=== PATIENT | female | born 1960 | race Asian ===

== ENCOUNTER 2017-05-31 07:59 | Emergency (ER) | payer OTHER ==
[~2017-05-31] VITALS: Ht 160 cm; Wt 78.0 kg
[~2017-05-31 07:59] MED LIST: IBUP-1542 PO; MULT-703 PO
[2017-05-31 08:01] VITALS: Ht 160 cm; Wt 78.0 kg
[2017-05-31] MEDS ORDERED: CETI10CA PO (08:28)
[2017-05-31] MEDS ORDERED: IBUP-1542 PO (08:28)
[2017-05-31] MEDS ORDERED: BENZ100C70 PO (08:29)
--- NOTE | 2017-05-31 08:34 | ERD ---
ER Documentation Chief Complaint Date/Time DATE: 05/31/17 TIME: 08:[address] X 3 DAYS HPI She is a 57-year-old female presents to the emergency department for concerns of throat pain 3 days. Patient does report pain with swallowing. Patient denies any drooling, trismus or hyperextension of her neck. Patient reports tactile fevers. Patient denies taking any medication for symptoms. Patient denies any nausea, vomiting, abdominal pain, diarrhea, ear pain or neck stiffness. Patient does have a dry cough. Patient denies any chest pain, shortness of breath, left upper extremity pain, nausea. Patient denies any recent travel. No sick contacts ROS All systems reviewed and are negative except as per history of present illness. Medications Home Meds Active Scripts Benzonatate* (Tessalon Perle*) 100 Mg Capsule, 100 MG PO Q8H Y for COUGH, #20 CAP Prov:ATUL HALLMAN PA-C 05/31/17 Cetirizine Hcl* (Zyrtec*) 10 Mg Capsule, 10 MG PO DAILY, #20 TAB.CHEW Prov:ATUL HALLMAN PA-C 05/31/17 Ibuprofen* (Motrin*) 600 Mg Tab, 600 MG PO Q6, #20 TAB Prov:ATUL HALLMAN PA-C 05/31/17 Reported Medications Ibuprofen* (Ibuprofen*) 600 Mg Tablet, 500 MG PO DAILY Y 09/27/12 Multivitamins (Multivitamins) 1 Tab.chew Tab.chew, 1 TAB.CHEW PO DAILY 09/27/12 Allergies Allergies: Coded Allergies: No Known Drug Allergies (Verified Allergy, Unknown, 09/27/12) PMhx/Soc History of Surgery: Yes (C/S X1) Anesthesia Reaction: No Hx Neurological Disorder: Yes (DIZZINESS) Hx Respiratory Disorders: No Hx Cardiac Disorders: Yes (PALPITATIONS) Hx Psychiatric Problems: No Hx Miscellaneous Medical Probl: Yes (FATTY LIVER, INSOMIA) Hx Alcohol Use: Yes (occassional) Hx Substance Use: No Hx Tobacco Use: No Smoking Status: Never smoker Physical Exam Vitals Vital Signs Date Time Temp Pulse Resp B/P Pulse Ox O2 Delivery O2 Flow Rate FiO2 05/31/17 08:01 98.3 77 18 135/68 98 Physical Exam GENERAL: Well-developed, well-nourished female. Appears in no acute distress. Speaking in full sentences. No abdominal retractions or nasal flaring, no tripoding. HEAD: Normocephalic, atraumatic. No deformities or ecchymosis. EYE: Pupils equal, round, and reactive to light. EOMs intact. No conjunctival erythema. No eye discharge. ENT: External ear without any masses or tenderness. Auditory canals clear bilaterally. TM visualized bilaterally, non-erythematous, non-bulging. Nasal mucosa pink with no discharge. Oropharynx is erythematous without any unilateral tonsillar swelling or exudates noted. No uvula deviation. No kissing tonsils. No drooling. No hyperextension of the neck. No trismus. NECK: Supple. No meningismus. Normal ROM of the neck. LUNGS: Clear to auscultation bilaterally. No rhonchi, wheezing, rales or coarse breath sounds. HEART: Regular rate and rhythm. No murmurs, rubs or gallops. BACK: No midline tenderness. EXTREMITIES: Equal pulses bilaterally. No peripheral clubbing, cyanosis or edema. No unilateral leg swelling. NEUROLOGIC: Alert and oriented to person, place and time. Moving all four extremities. 5/5 strength in all extremities. Normal speech. Steady gait. SKIN: Normal color. Warm and dry. No rashes or lesions. Procedures/MDM MEDICAL DECISION MAKING: This is a 57-year-old female presents to the ED with concerns of throat pain and a dry cough 3 days. Vital signs were reviewed. Patient was afebrile. Patient was not hypoxic. The patient does not have trismus, muffled voice, uvula deviation, unilateral tonsillar swelling, or drooling. No signs of neck swelling or hyperextension of the neck noted. Lung exam was unremarkable. Given these findings, the patient's presentation is most consistent with viral pharyngitis. I have a much lower clinical suspicion for epiglottitis, peritonsillar abscess, retropharyngeal abscess, Ludwigs angina, strep pharyngitis, dental abscess, meningitis, acute otitis media, otitis externa. PRESCRIPTIONS: Zyrtec, ibuprofen, Tessalon Perles DISCHARGE: At this time, patient is stable for discharge and outpatient management. Supportive therapies such as OTC throat lozenges and warm salt water gurgles were discussed. I have instructed the patient to follow-up with his/her primary care physician in 1-2 days. I have discussed with the patient the possibility of needing to see a specialist for further workup and imaging studies if symptoms persist. I have instructed the patient to promptly return to the ER for any new or worsening symptoms including increased pain, fever, nausea, vomiting, weakness or LOC. The patient and/or family expressed understanding of and agreement with this plan. All questions were answered. Home care instructions were provided. Patients blood pressure was elevated (>120/80) but appears stable without evidence of hypertensive emergency, hypertensive urgency or end-organ failure. I had discussion with the patient about the risks of hypertension. I have advised the patient to follow up with his/her primary care physician for outpatient monitoring and treatment for hypertension in 2-3 days. I have instructed the patient to return to the ER for any new or worsening symptoms including chest pain, shortness of breath, headache, blurred vision, confusion, nausea, vomiting or LOC. Departure Diagnosis: Primary Impression: Viral pharyngitis Condition: Stable Patient Instructions: Pharyngitis, Viral Additional Instructions: Call your primary care doctor TOMORROW for an appointment during the next 1-2 days.See the doctor sooner or return here if your condition worsens before your appointment time. ATUL HALLMAN PA-C May 31, 2017 08:34
== END 2017-05-31 08:50 | disposition home or self-care (01) ==
LOC: FTE 07:59
DX: J02.9 Acute pharyngitis, unspecified (principal)
CPT/HCPCS: 99283